=== PATIENT | female | born 1970 | race American Indian/Alaskan Native ===

== ENCOUNTER 2019-08-06 15:38 | Inpatient (IN) | payer OTHER ==
[~2019-08-06] VITALS: Ht 165.1 cm; Wt 61.9 kg
[2019-08-06 16:00] LABS: Calcium, Ionized (POC) 1.11 mmol/L (1.10-1.46); Chloride (POC) 101 mmol/L (98-108); Creatinine (POC) 1.9 mg/dL (0.6-1.0); Glucose (ISTAT POC) 249 mg/dL (70-99); Hemoglobin (POC) 14.3 g/dL (12.0-16.0); Potassium (POC) 4.8 mmol/L (3.5-5.5); Sodium (POC) 132 mmol/L (135-148); Total CO2 (POC) 19 mmol/L (21-32)
[2019-08-06 16:30] LABS: BASOPHILS ABSOLUTE AUTO 0.07 K/mm3 (0.00-0.23); BASOPHILS PERCENT AUTO 0 % (0-2); EOSINOPHILS ABSOLUTE AUTO 0.06 K/mm3 (0.00-0.68); EOSINOPHILS PERCENT AUTO 0 % (0-6); Hematocrit 40.8 % (33.0-51.0); Hemoglobin 12.8 g/dL (11.5-16.0); IMMATURE GRAN PERCENT AUTO 4 % (0-1); LYMPHOCYTES ABSOLUTE AUTO 2.57 K/mm3 (0.84-5.20); LYMPHOCYTES PERCENT AUTO 13 % (21-46); MONOCYTES ABSOLUTE AUTO 0.65 K/mm3 (0.16-1.47); MONOCYTES PERCENT AUTO 3 % (4-13); Mean Corpuscular HGB 27.2 pg (26.0-34.0); Mean Corpuscular HGB Conc 31.4 g/dL (31.5-36.5); Mean Corpuscular Volume 87 fL (80-100); Mean Platelet Volume 10.8 fL (9.1-12.4); NEUTROPHILS ABSOLUTE AUTO 15.29 K/mm3 (1.96-9.15); NEUTROPHILS PERCENT AUTO 79 % (41-73); Platelet Count 456 K/mm3 (150-400); RDW Coefficient Variation 14.9 % (11.7-14.2); RDW Standard Deviation 47.9 fL (35.1-46.3); White Blood Cell Count 19.44 K/mm3 (4.00-11.30)
[2019-08-06 16:38] LABS: International Normalized Ratio 0.99; Prothrombin Time Results 10.5 Sec (9.7-11.5)
[2019-08-06 16:43] LABS: Alanine Aminotransfer (ALT/SGP 171 U/L (12-78); Albumin, Blood 3.4 g/dL (3.4-5.0); Albumin/Globulin Ratio 0.8 (0.8-1.8); Alk Phos 85 U/L (50-136); Anion Gap 15 mmol/L (6-16); Aspartate Aminotrans (AST/SGOT 203 U/L (12-37); Bilirubin, Total 0.2 mg/dL (0.1-1.0); Blood Urea Nitrogen 29 mg/dL (8-24); Bun/Creatinine Ratio 16.4 (12.0-20.0); CO2, Blood 17 mmol/L (21-32); Chloride, Blood 100 mmol/L (98-108); Creatinine, Blood 1.77 mg/dL (0.40-1.00); Ethanol (Alcohol), Blood, Med <3 mg/dL; Globulin, Blood 4.1 g/dL (2.2-4.0); Glomerular Filtration Rate 27 (60-); Glucose, Blood 244 mg/dL (70-99); Magnesium, Blood 2.2 mg/dL (1.6-2.4); Potassium, Blood 4.7 mmol/L (3.5-5.5); Sodium, Blood 132 mmol/L (136-145); Total Protein, Blood 7.5 g/dL (6.4-8.2); Troponin I 0.063 ng/mL (0.000-0.040)
[2019-08-06 16:44] LABS: PCO2 Arterial 44.5 mmHg (35-45); PO2 Arterial 99.8 mmHg (80-100)
[2019-08-06 16:45] LABS: pH Blood Arterial 7.26 (7.35-7.45)
[2019-08-06 17:25] LABS: Source, Urine Catheter
[2019-08-06 17:29] LABS: Bilirubin, Urine Neg (Neg); Blood, Urine 5+ (Neg); Glucose Qualitative, Urine Neg (Neg); Ketones, Urine Neg (Neg); Leukocyte Esterase, Urine Neg (Neg); Nitrite, Urine Neg (Neg); Protein, Urine 4+ (Neg); Specific Gravity, Urine 1.015 (1.003-1.022); Urobilinogen, Urine NORM (Normal); pH, Urine 6.5 (5.0-8.0)
[2019-08-06 17:41] LABS: U Amphetamine Screen DETECTED; U Methamphetamine Screen DETECTED
[2019-08-06 17:42] LABS: U Barbituate Screen Not Detected; U Benzodiazapine Screen Not Detected; U Buprenorphine Screen Not Detected; U Cannabinoids Screen DETECTED; U Cocaine Screen Not Detected; U Methadone Screen Not Detected; U Opiates Screen Not Detected; U Oxycodone Screen Not Detected; U Phencyclidine Screen Not Detected; U Propoxyphene Screen Not Detected
[2019-08-06 17:46] LABS: Appearance, Urine Cloudy (Clear); Color, Urine Yellow (P-Yellow)
[2019-08-06 18:07] LABS: Bacteria Many /hpf; Red Blood Cells, Urine 25-50 /hpf (0-2); Squamous Epithelial Cells Many /hpf (Few)
[2019-08-06 18:09] LABS: Amorphous Mod (0-Heavy)
[2019-08-06 20:49] LABS: PCO2 Arterial 35.4 mmHg (35-45); PO2 Arterial 148 mmHg (80-100); pH Blood Arterial 7.37 (7.35-7.45)
[2019-08-06] MEDS ORDERED: SPIR25 PO (20:59)
[2019-08-06] MEDS ORDERED: METO25 PO (21:00)
--- NOTE | 2019-08-06 23:00 | NUR ---
ARRIVAL TO UNIT PT ARRIVED TO ICU VIA GURNEY WITH ED RN AND RT @ 1855. PT INTUBATED AND SEDATED, VENT SET TO AC 18/400/5/45%, LS COARSE AND WHEEZY T/O, RESP RATE 30'S. MONITOR SHOWS SINUS TACH, HR 130'S, PT HYPERTENSIVE WITH SBP 160'S. PT SEDATED ON PROPOFOL (SEE FLOWSHEET), NOT OPENING EYES, PUPILS EQUAL BUT SLUGGISH. TEMP 97.1. LONGORIA IN PLACE AND DRAINING CLEAR YELLOW URINE. PTS FRIEND ADDI AT BEDSIDE, KNOWS SOME MEDICAL HX REGARDING PT. STS HX OF CHF, BUT WAS UNABLE TO FILL HER "HEART" MEDICATION. STS PT HAS A HX OF IV METH USE, AND CURRENTLY SMOKES METH WITH LAST USE YESTERDAY (08/05/19). PER ADDI, FOR APPROX THE PAST TWO WEEKS, PT HAS BEEN EXPERIENCING INCREASED INDIGESTION AND BACK PN. UPON ARRIVAL TO UNIT PT HAD PERIPHERAL IV X2, ABX AND LR STARTED. DR CHACKO TO ROOM AT APPROX 2030, DR CHACKO SPOKE WITH ADDI (IN ROOM) AND PTS SON (ON PHONE) REGARDING PTS HX AND CURRENT STATUS. PROPOFOL PLACED ON SB TO BETTER ASSESS NEURO STATUS. DECISION MADE TO INITIATE TARGETED TEMPERATURE MANAGEMENT, COOLING CATHETER PLACED, PT RESPONSIVE TO PAIN AT THIS TIME, WITHDRAWING LEG AT TIMES DURING CATHETER PLACEMENT. TARGETED TEMPERATURE MANAGEMENT INITIATED AT 2300. ABG DRAWN FROM R FEMORAL, NEAR CENTRAL LINE, BLEEDING NOTED, DRESSING CHANGED AND PRESSURE/WEIGHT APPLIED TO SITE.
[2019-08-06 23:40] LABS: BASOPHILS ABSOLUTE AUTO 0.05 K/mm3 (0.00-0.23); BASOPHILS PERCENT AUTO 0 % (0-2); EOSINOPHILS PERCENT AUTO 0 % (0-6); Hematocrit 37.8 % (33.0-51.0); IMMATURE GRAN ABSOLUTE AUTO 0.17 K/mm3 (0.00-0.10); IMMATURE GRAN PERCENT AUTO 1 % (0-1); LYMPHOCYTES ABSOLUTE AUTO 0.46 K/mm3 (0.84-5.20); LYMPHOCYTES PERCENT AUTO 2 % (21-46); MONOCYTES ABSOLUTE AUTO 0.52 K/mm3 (0.16-1.47); MONOCYTES PERCENT AUTO 2 % (4-13); Mean Corpuscular HGB Conc 31.7 g/dL (31.5-36.5); Mean Corpuscular Volume 85 fL (80-100); Mean Platelet Volume 10.7 fL (9.1-12.4); NEUTROPHILS ABSOLUTE AUTO 25.86 K/mm3 (1.96-9.15); NEUTROPHILS PERCENT AUTO 96 % (41-73); Platelet Count 394 K/mm3 (150-400); RDW Coefficient Variation 15.2 % (11.7-14.2); RDW Standard Deviation 46.9 fL (35.1-46.3); Red Blood Cell Count 4.44 M/mm3 (3.80-5.20); White Blood Cell Count 27.06 K/mm3 (4.00-11.30)
[2019-08-07 00:01] LABS: International Normalized Ratio 1.01; Prothrombin Time Results 10.7 Sec (9.7-11.5)
[2019-08-07 00:02] LABS: Albumin, Blood 3.4 g/dL (3.4-5.0); Albumin/Globulin Ratio 0.9 (0.8-1.8); Bilirubin, Total 0.5 mg/dL (0.1-1.0); Bun/Creatinine Ratio 21.7 (12.0-20.0); Calcium, Blood 7.9 mg/dL (8.5-10.1); Creatinine, Blood 1.52 mg/dL (0.40-1.00); Globulin, Blood 3.8 g/dL (2.2-4.0); Potassium, Blood 5.4 mmol/L (3.5-5.5); Total Protein, Blood 7.2 g/dL (6.4-8.2)
[2019-08-07 00:04] LABS: Troponin I 0.626 ng/mL (0.000-0.040)
--- NOTE | 2019-08-07 01:00 | NUR ---
PT BEGAN THRASHING AROUND IN BED, PULLING AT RESTRAINTS, KICKING LEGS, ETT DC'D FROM VENTILATOR. PTS EYES OPEN, NOT FOLLOWING DIRECTIONS. ETT AND VENTILATOR QUICKLY RECONNECTED, FENTANYL PROVIDED AND PROPOFOL RESTARTED (SEE FLOW SHEET).
[2019-08-07 03:44] LABS: BASOPHILS ABSOLUTE AUTO 0.03 K/mm3 (0.00-0.23); BASOPHILS PERCENT AUTO 0 % (0-2); EOSINOPHILS PERCENT AUTO 0 % (0-6); Hematocrit 36.4 % (33.0-51.0); Hemoglobin 11.5 g/dL (11.5-16.0); IMMATURE GRAN PERCENT AUTO 1 % (0-1); LYMPHOCYTES ABSOLUTE AUTO 0.45 K/mm3 (0.84-5.20); LYMPHOCYTES PERCENT AUTO 2 % (21-46); MONOCYTES ABSOLUTE AUTO 0.41 K/mm3 (0.16-1.47); MONOCYTES PERCENT AUTO 2 % (4-13); Mean Corpuscular HGB 26.9 pg (26.0-34.0); Mean Corpuscular HGB Conc 31.6 g/dL (31.5-36.5); Mean Corpuscular Volume 85 fL (80-100); Mean Platelet Volume 10.5 fL (9.1-12.4); NEUTROPHILS ABSOLUTE AUTO 18.07 K/mm3 (1.96-9.15); NEUTROPHILS PERCENT AUTO 95 % (41-73); Platelet Count 345 K/mm3 (150-400); RDW Coefficient Variation 15.3 % (11.7-14.2); RDW Standard Deviation 47.8 fL (35.1-46.3); Red Blood Cell Count 4.27 M/mm3 (3.80-5.20); White Blood Cell Count 19.06 K/mm3 (4.00-11.30)
[2019-08-07 04:00] LABS: Albumin, Blood 3.2 g/dL (3.4-5.0); Albumin/Globulin Ratio 0.9 (0.8-1.8); Bilirubin, Total 0.5 mg/dL (0.1-1.0); Bun/Creatinine Ratio 24.4 (12.0-20.0); Creatinine, Blood 1.35 mg/dL (0.40-1.00); Globulin, Blood 3.6 g/dL (2.2-4.0); Potassium, Blood 4.4 mmol/L (3.5-5.5); Total Protein, Blood 6.8 g/dL (6.4-8.2)
[2019-08-07 04:36] LABS: Phosphorus, Blood 3.8 mg/dL (2.5-4.9)
--- NOTE | 2019-08-07 05:45 | NUR ---
SHIFT SUMMARY PT REMAINS INTUBATED AND SEDATED WITH VENT SET TO AC 18/400/5/40%, O2 SATURATIONS MAINTAINED AOBVE 95%, LS COARSE AND WHEEZY TO CLEAR T/O SHIFT, MINIMAL SECRETIONS FROM ETT TOWARDS END OF SHIFT. HR AND BP IMPROVED SINCE ADMISSION, CURRENT RATE 70'S-80'S WITH SBP 140'S-150'S. PROPOFOL PLACED ON SB FOR APPROX 4 HOURS THIS SHIFT TO BETTER ASSESS NEURO STATUS, PT OPENS EYES SPONTANEOUSLY, DOES NOT TRACK OBJECTS, DOES NOT FOLLOW COMMANDS, CORNEAL REFLEX NOT PRESENT AT THIS TIME. PT BECAME VERY AGITATED, PROPOFOL RESTARTED (SEE NURSES NOTE). TARGETED TEMPERATURE MANAGEMENT INITIATED THIS SHIFT, TARGET TEMP OF 96.0 REACHED @ 0015. PT NO LONGER DIAPHORETIC, EXTREMETIES COOL AND DUSKY. LONGORIA IN PLACE DRAINING YELLOW URINE WITH SOME SEDIMENT NOTED, GOOD URINE OUTPUT THIS SHIFT.
[2019-08-07 08:16] LABS: International Normalized Ratio 0.98; Prothrombin Time Results 10.4 Sec (9.7-11.5)
--- NOTE | 2019-08-07 08:53 | NUR ---
SEDATION VACATION: PROPOFOL TURNED OFF PER DR. CHACKO'S ORDERS. PT STARTED OPENING HER EYES, LOOKING AROUND, APPEARED TO LOOK TOWARD VOICES, BUT SHE WAS ALSO THRASHING HER ARMS AND LEGS, UNABLE TO HOLD STILL. SHE DID NOT FOLLOW ANY COMMANDS. DR. CHACKO AT THE BEDSIDE FOR THIS, ORDERED PROPOFOL TO BE TURNED BACK ON, FENTANYL GIVEN WELL. PT SEDATED AGAIN AND APPEARS MORE COMFORTABLE. DR. CHACKO GAVE ORDERS TO STOP COOLING PT SHE IS WAKING UP. TARGET TEMP TURNED TO 98F. CONTINUE TO MONITOR.
--- NOTE | 2019-08-07 12:27 | NUR ---
EXTUBATE: AFTER 30 MINUTE WEANING TRIAL WITH PT ON PS 5 PEEP 5, PULLING VOLUMES GREATER THAN 350ML WHILE SLEEPING EVEN DR. CHACKO GAVE ORDER TO EXTUBATE. PT WAS ON PRECEDEX DURING WEANING TRIAL. SHE WAS MUCH CALMER THAN EARLIER BUT STILL ANXIOUS. PT EXTUBATED AT 1218 AND PLACED ON 2L/NC WITH SPO2 98%. PT A LITTLE ANXIOUS EVEN AFTER EXTUBATION SO PRECEDEX LEFT ON BUT TITRATED DOWN AND WILL CONTINUE TO TITRATE DOWN. PT'S SON AT THE BEDSIDE. CONTINUING TO MONITOR.
--- NOTE | 2019-08-07 12:31 | NUR ---
REASSESSMENT: PT HAS DONE WELL THIS MORNING. ON HER FIRST WEAN SHE WAS VERY AGITATED AND WOULDN'T FOLLOW COMMANDS, BUT WHEN WEANED AGAIN LATER THIS MORNING WITH PRECEDEX SHE WAS MUCH CALMER AND FOLLOWING COMMANDS. SHE WAS EXTUBATED AND IS MAINTAINING SPO2 98% ON 2L/NC, WILL TITRATE O2 DOWN. HER LUNGS STILL HAVE SOME WHEEZES, WEAK COUGH. PRECEDEX REMAINS ON AND WILL TITRATE OFF PT'S ANXIETY ALLOWS. PT IS RESTING QUIETLY RIGHT NOW. WILL ASSESS NEURO STATUS LATER WHEN PT CAN TALK MORE, BUT PT WAS NODDING HER HEAD TO QUESTIONS AND SAID SHE RECOGNIZED HER FAMILY WHILE SHE WAS STILL INTUBATED. SR, BP STABLE. BODY TEMP 98.4F, COOLING PARAMETERS WERE STOPPED BY DR CHACKO ONCE HE SAW SHE WAS WAKING UP. PT'S SONS ARE AT THE BEDSIDE AND HAVE BEEN UPDATED REPEATEDLY ABOUT HER PROGRESS.
--- NOTE | 2019-08-07 14:47 | NUR ---
ECHOCARDIOGRAM COMPLETE
--- NOTE | 2019-08-07 16:25 | NUR ---
SHIFT SUMMARY: PT WAS EXTUBATED TODAY AND HAS DONE WELL. SHE IS NOW ON RA WITH SPO2 GREATER THAN 95%. LUNGS STILL HAVE EXP WHEEZES. PT IS ORIENTED TO HERSELF AND HER FAMILY. SHE CAN'T REMEMBER WHERE SHE IS OR THE DATE DESPITE BEING TOLD MULTIPLE TIMES. SHE ASKS EVERY FEW MINUTES WHAT HAPPENED TO PUT HER IN THE HOSPITAL AND ALWAYS ACTS SURPRISED WHEN SHE IS TOLD. SHE IS TAKING SIPS OF WATER NOW WITHOUT ANY SIGNS OF ASPIRATION. SHE IS SR/ST WITH RATE IN THE 90 TO LOW 100S. BP STABLE. TEMP 99.0F. LONGORIA REMAINS IN PLACE DRAINING CL YELLOW URINE. CENTRAL LINE REMOVED PER DR. CHACKO. PT HAD A SMALL AMT OF BLEEDING AFTER THE INITIAL PULL AND PRESSURE HOLDING. PRESSURE HELD AGAIN FOR ABOUT 5 MINUTES AND BLEEDING STOPPED. DRAINAGE ON DRESSING OUTLINED. FAMILY REMAINS AT THE BEDSIDE AND HAS CONTINUED TO BE UPDATED THROUGHOUT THE DAY.
--- NOTE | 2019-08-07 20:15 | NUR ---
CENTRAL LINE SITE DRESSING SATURATED WITH BLOOD, DRESSING FALLING OFF. BLEEDING NOTED AT THE LOCATION OF SUTURE SITE FOR PREVIOUS CENTRAL LINE, PRESSURE HELD, KAREL DRESSING APPLIED, WILL CONTINUE TO MONITOR.
--- NOTE | 2019-08-07 21:00 | NUR ---
ASSUMPTION OF CARE ASSUMED CARE OF PT @ 1900. PT AWAKE IN BED, O2 SATURATIONS 96% ON RA, LS COARSE AND WHEEZY T/O, MONITOR SHOWS SINUS TACH, RATE 110-120'S, PT DENIES CP AND SOB. PT ORIENTED TO SELF, PLACE AND FAMILY, DID NOT KNOW THE MONTH BUT KNEW THE UPCOMING HOLIDAY (). PT SEEMS TO HAVE SOME SHORT TERM MEMORY ISSUES, NEEDING FREQUENT REORIENTATION TO THE EVENTS THAT LED UP TO THIS HOSPITAL STAY. PT PLEASANT AND COOPERATIVE. SKIN IS WARM. BOWEL TONES FAIRLY HYPOACTIVE TO THE RUQ AND RLQ, LLQ AND LUQ NORMAL BOWEL TONES, BELLY IS SOFT AND PT DENIES PAIN WITH PALPATION, UNABLE TO DETERMINE LAST BM. LONGORIA IN PLACE DRAINING CLEAR YELLOW URINE. CENTRAL LINE DC'D ON PREVIOUS SHIFT, DRESSING TO R FEMORAL WITH SOME BLOOD NOTED, PLAN TO CHANGE DRESSING THIS SHIFT.
--- NOTE | 2019-08-07 21:30 | NUR ---
PT COMPLAINING LEFT CHEST PAIN, PT STATUS POST CPR AND DEFIBRILATION, DENIES SOB, STS PAIN IS WORSE WITH PALPATION. PT ALT LOC SINCE EXTUBATION, UNABLE TO RATE PAIN. SEE PAIN ASESSMENT. NO CHANGE NOTED IN VS OR HEART RHYTHM. PRN FENTANLY PROVIDED.
--- NOTE | 2019-08-07 23:00 | NUR ---
DR CHACKO IN TO SEE PT. UPDATED ON PTS STATUS, PT SOMEWHAT RESTLESS IN BED, SOME BLEEDING TO R GROIN AREA FROM PREVIOUS CENTRAL LINE. ORDERS TO RESTART PRECEDEX AT 0.2 AND DELAY MORNING LOVENOX UNTIL 1200.
--- NOTE | 2019-08-08 00:30 | NUR ---
UPDATE DR CHACKO ON PTS R FEMORAL SITE, CONTINUES TO BLEED, DRESSING CHANGE x4 THIS SHIFT. PT EASILY AROUSED. DR CHACKO CHECKED WOUND SITE, ORDERS TO TITRATE PRECEDEX UP TO 1.4 NEEDED. SITE DRESSED WITH KAREL DRESSING, ABD PAD AND PRESSURE DRESSING. PRESSURE HELD TO SITE. WILL CONTINUE TO MONITOR AND CHANGE NEEDED.
--- NOTE | 2019-08-08 02:00 | NUR ---
ST CHANGES NOTED ON RHYTHM STRIP, EKG DONE, NO CHANGES NOTED FROM PREVIOUS EKG.
--- NOTE | 2019-08-08 02:30 | NUR ---
R GROIN WOUND ASSESSMENT, ABD PAD SATURATED. FEMSTOP APPLIED AT THIS TIME.
[2019-08-08 03:48] LABS: BASOPHILS ABSOLUTE AUTO 0.02 K/mm3 (0.00-0.23); BASOPHILS PERCENT AUTO 0 % (0-2); EOSINOPHILS PERCENT AUTO 0 % (0-6); Hematocrit 28.8 % (33.0-51.0); Hemoglobin 8.9 g/dL (11.5-16.0); IMMATURE GRAN ABSOLUTE AUTO 0.09 K/mm3 (0.00-0.10); IMMATURE GRAN PERCENT AUTO 1 % (0-1); LYMPHOCYTES ABSOLUTE AUTO 0.28 K/mm3 (0.84-5.20); LYMPHOCYTES PERCENT AUTO 2 % (21-46); MONOCYTES ABSOLUTE AUTO 0.12 K/mm3 (0.16-1.47); MONOCYTES PERCENT AUTO 1 % (4-13); Mean Corpuscular HGB 26.3 pg (26.0-34.0); Mean Corpuscular HGB Conc 30.9 g/dL (31.5-36.5); Mean Corpuscular Volume 85 fL (80-100); Mean Platelet Volume 10.6 fL (9.1-12.4); NEUTROPHILS ABSOLUTE AUTO 13.68 K/mm3 (1.96-9.15); NEUTROPHILS PERCENT AUTO 97 % (41-73); Platelet Count 254 K/mm3 (150-400); RDW Coefficient Variation 15.9 % (11.7-14.2); RDW Standard Deviation 49.7 fL (35.1-46.3); Red Blood Cell Count 3.38 M/mm3 (3.80-5.20); White Blood Cell Count 14.19 K/mm3 (4.00-11.30)
[2019-08-08 04:00] LABS: Anion Gap 9 mmol/L (6-16); Blood Urea Nitrogen 22 mg/dL (8-24); Bun/Creatinine Ratio 21.2 (12.0-20.0); CO2, Blood 22 mmol/L (21-32); Calcium, Blood 8.4 mg/dL (8.5-10.1); Chloride, Blood 111 mmol/L (98-108); Creatinine, Blood 1.04 mg/dL (0.40-1.00); Glomerular Filtration Rate 59 (60-); Glucose, Blood 139 mg/dL (70-99); Phosphorus, Blood 2.3 mg/dL (2.5-4.9); Potassium, Blood 4.3 mmol/L (3.5-5.5); Sodium, Blood 142 mmol/L (136-145)
--- NOTE | 2019-08-08 05:50 | NUR ---
SHIFT SUMMARY PT NEURO STATUS UNCHANGED FROM BEGINNING OF SHIFT. LS COARS AND WHEEZY T/O, BUT OVERALL IMPROVED FROM BEGINNING OF SHIFT, 2L O2 PER NC APPLIED BREIFLY THIS SHIFT AFTER O2 SATURATIONS DECREASED TO 85% POST FENTANYL ADMINISTRATION, PT NOW ON RA, O2 94%. MONITOR SHOWS SINUS RHYTHM, HR 80'S, SBP 120'S, PRECEDEX RUNNING AT 1.1. ISSUES WITH BLEEDING AT CENTRAL LINE SUTURE SITE SUBSIDED POST FEMOSTOP APPLICATION, BALLOON NEVER INFLATED, SLOWLY RELEASING TENSION. LONGORIA IN PLACE WITH GOOD URINE OUTPUT.
--- NOTE | 2019-08-08 07:20 | NUR ---
DR. VARGAS HERE TO ASSESS PATIENT; WANTS TO KEEP HER IN ICU ONE MORE DAY D/T WHEEZING, BLEEDING ISSUE, ETC. SEE ORDERS.
--- NOTE | 2019-08-08 07:30 | NUR ---
ASSUMED CARE OF PATIENT; SEE ASSESSMENT CHARTING FOR DETAILS. PATIENT SLEEPING; AROUSES TO MODERATE, LOUD VERBAL STIMULI OR FIRMER TOUCH. REMAINS ON PRECEDEX GTT AT 1.1 MCG/KG/MIN; TRYING TO KEEP PATIENT CALM. R GROIN (SUTURE AREA) WITH FEM STOP SECURED; NOT INFLATED, HOWEVER. PATIENT WITH PERSISTENT BLEEDING THROUGH DRESSINGS; EVEN WITH DIRECT PRESSURE HELD FOR LONG PERIODS. CURRENTLY, OLD BLOOD NOTED TO 2X2 DRESSINGS (BENEATH FEM STOP); HAS NOT INCREASED SINCE 0230 PER PELT SHEARER RN. GOOD PULSES TO ALL EXTREMITIES AND VSS. MONITOR REMAINS NSR; TEMP. 99.9/TEMPORAL; SHEET AND GOWN IN PLACE BUT NO BLANKET. WBC DOWN TO 14.19 THIS AM. LUNGS WITH WHEEZES NOTED IN UPPER AIRWAYS; RECEIVING UDN TX'S; REMAINS ON ROOM AIR. LONGORIA TO GRAVITY WITH TEMP. PROBE. PATIENT REMAINS ON MENSES; DANIELLE CARE DONE PRN. OVERALL STATUS IMPROVED.
--- NOTE | 2019-08-08 09:00 | NUR ---
PT. REPOSITIONED ONTO R SIDE; FEM STOP RELEASED; SITE UNCHANGED; NO ACUTE BLEEDING.
--- NOTE | 2019-08-08 09:15 | NUR ---
PATIENT GIVEN YOGURT WITH ASA PILL; TOLERATED WELL; FULL LIQUID TRAY STARTING AT LUNCH. RN MAY ADVANCE KAMAR. PATIENT WONDERING WHAT HAPPENED TO HER TEETH (UPPER PLATE OUT). RN REVIEWED WHY PATIENT CAME TO HOSPITAL (COLLAPSED/NON-RESPONSIVE AT HOME SHE WAS CLEANING; FOUND BY HOME SWAMPER WHEN HOME SWAMPER CAME OUT OF BATHROOM; PATIENT NOT BREATHING AND HEART STOPPED). EMS CALLED AND PATIENT WAS IN V-FIB AND REQUIRED DEFIB./CPR AND INTUBATION; TEETH WERE PROBABLY LEFT IN HOME-OWNERS HOME. PATIENT DOES NOT RECALL INCIDENT; WITHIN A MINUTE SHE RE-ASKED RN "WHERE ARE MY TEETH?" RN RE-EXPLAINED. SAME QUESTION EVERY FEW MINUTES. PATIENT UNAWARE OF MONTH/DAY OR YEAR; THOUGHT IT WAS 2002.
--- NOTE | 2019-08-08 09:50 | NUR ---
FAMILY HERE; PATIENT ASKED THEM WHERE HER TEETH ARE AND THEY INFORMED PATIENT THEY ARE WITH [facility]. SAME QUESTION RE-ASKED OF IQRA TO FAMILY AND RN.
--- NOTE | 2019-08-08 11:20 | NUR ---
DR. CHACKO (WEDGER MACHINE) HERE; ORDERED OT/PT EVAL AND TX.
--- NOTE | 2019-08-08 14:00 | NUR ---
PRECEDEX REDUCED TO 0.5MCG/KG/HR; PATIENT REMAINS WITH SHORT-TERM MEMORY ISSUES BUT VERY PLEASANT AND COOPERATIVE.
--- NOTE | 2019-08-08 16:25 | NUR ---
[facility] note: Zarina was surrounded by friends and family when I visited. She smiles easily, but appears confused as to why she is here. She appears well-suported by family/friends. She has three sons, none of which live locally. Twin sons are present having arrived from [place]. No concerns presented. Family quieted with Tnt Powder Worker arrival. I will attempt one-on-one visit with Zarina in coming days.
--- NOTE | 2019-08-08 16:35 | NUR ---
VICODAN (2 TABS) GIVEN FOR CHEST SORENESS; STATES PAIN 5/10.
--- NOTE | 2019-08-08 16:40 | NUR ---
PRECEDEX GTT REDUCED TO 0.3MCG/KG/HR.
--- NOTE | 2019-08-08 18:27 | NUR ---
SUMMARY: APPETITE GOOD AND NO GI UPSET. LONGORIA DRAINING MODERATE AMOUNTS OF STRAW COLORED URINE (850)ML. REMAINS ON MENSES; DANIELLE CARE AND CATH. CARE DONE SEVERAL TIMES A DAY. LOTS OF FAMILY AND FRIENDS VISITING. PATIENT REMAINS FORGETFUL (SHORT-TERM) BUT APPEARS MORE ALERT AND TALKING (INITIATING) CONVERSATIONS. ABLE TO FEED SELF WITHOUT ISSUES; NO S/SX OF ASPIRATION. REMAINS ON ROOM AIR BUT CONSISTENT WHEEZING TO UPPER AIRWAYS. PRECEDEX GTT TITRATED FROM 1.1MCG/KG/HR AT 0730 DOWN 0.3 MCG/KG/HR AT PRESENT. R FEMORAL DRESSING CHANGED THIS AM; NO BLEEDING NOTED ON CURRENT DRESSING. OT AND PT DID EVALS. THIS AFTERNOON; SEE NOTES.
--- NOTE | 2019-08-08 20:30 | NUR ---
ASSUMPTION OF CARE ASSUMED CARE OF PT AT 1900. PT AWAKE IN BED, VISITING WITH FRIENDS AND FAMILY, A&O x4, PT EXHIBITING SOME SHORT TERM MEMORY DEFECITS BUT IS IMPROVED FROM PREVIOUS SHIFT. PTS RESPIRATIONS EVEN AND UNLABORED DENIES SOB, LS COARSE WITH SOME EXPIRATORY WHEEZES TO THE LEFT LOBES. PT HAS OCCASSIONAL COUGH, EXPRESSES PAIN IN THE STERNAL/COSTAL AREA WITH COUGH, EDUCATED TO SPLINT CHEST WITH PILLOW WHEN COUGHING TO REDUCE PAIN. MONITOR SHOWS NSR TO SINUS TACH, SBP 120'S. PT TOLERATING PO INTAKE, DENIES GI ISSUES. LONGORIA IN PLACE AND DRAINING CLEAR YELLOW URINE. PRECEDEX RUNNING @ .3 (SEE FLOWSHEET)
[2019-08-09 03:48] LABS: BASOPHILS ABSOLUTE AUTO 0.02 K/mm3 (0.00-0.23); BASOPHILS PERCENT AUTO 0 % (0-2); EOSINOPHILS PERCENT AUTO 0 % (0-6); Hemoglobin 8.8 g/dL (11.5-16.0); IMMATURE GRAN ABSOLUTE AUTO 0.12 K/mm3 (0.00-0.10); IMMATURE GRAN PERCENT AUTO 1 % (0-1); LYMPHOCYTES ABSOLUTE AUTO 0.36 K/mm3 (0.84-5.20); LYMPHOCYTES PERCENT AUTO 2 % (21-46); MONOCYTES ABSOLUTE AUTO 0.37 K/mm3 (0.16-1.47); MONOCYTES PERCENT AUTO 2 % (4-13); Mean Corpuscular HGB 26.8 pg (26.0-34.0); Mean Corpuscular HGB Conc 31.4 g/dL (31.5-36.5); Mean Corpuscular Volume 85 fL (80-100); Mean Platelet Volume 10.6 fL (9.1-12.4); NEUTROPHILS PERCENT AUTO 95 % (41-73); Platelet Count 244 K/mm3 (150-400); RDW Coefficient Variation 16.2 % (11.7-14.2); RDW Standard Deviation 50.5 fL (35.1-46.3); Red Blood Cell Count 3.28 M/mm3 (3.80-5.20); White Blood Cell Count 18.67 K/mm3 (4.00-11.30)
[2019-08-09 04:07] LABS: Alanine Aminotransfer (ALT/SGP 70 U/L (12-78); Albumin/Globulin Ratio 0.9 (0.8-1.8); Alk Phos 45 U/L (50-136); Anion Gap 7 mmol/L (6-16); Aspartate Aminotrans (AST/SGOT 44 U/L (12-37); Bilirubin, Direct 0.1 mg/dL (0.0-0.3); Bilirubin, Indirect 0.3 mg/dL (0.1-0.7); Bilirubin, Total 0.4 mg/dL (0.1-1.0); Blood Urea Nitrogen 23 mg/dL (8-24); Bun/Creatinine Ratio 24.9 (12.0-20.0); CO2, Blood 24 mmol/L (21-32); Calcium, Blood 8.5 mg/dL (8.5-10.1); Chloride, Blood 110 mmol/L (98-108); Creatinine, Blood 0.92 mg/dL (0.40-1.00); Globulin, Blood 3.4 g/dL (2.2-4.0); Glomerular Filtration Rate >60 (60-); Glucose, Blood 143 mg/dL (70-99); Phosphorus, Blood 2.2 mg/dL (2.5-4.9); Potassium, Blood 4.9 mmol/L (3.5-5.5); Sodium, Blood 141 mmol/L (136-145); Total Protein, Blood 6.4 g/dL (6.4-8.2)
--- NOTE | 2019-08-09 05:41 | NUR ---
CALL PLACED TO DR CHACKO REGARDING MORNING LABS (PHOS 2.2), ORDERS FOR 30 MM POTASSIUM PHOSPHATE IV X1.
--- NOTE | 2019-08-09 06:58 | NUR ---
SHIFT SUMMARY PT RESTED WELL T/O NIGHT, AROUSES EASILY WITH NURSING CARE, SOME SHORT TERM MEMORY DEFECITS STILL APPARAENT, BUT IMPROVING T/O SHIFT. PT COMPLAINS OF STERNAL CP TO AREA WHERE CPR AND DEFIB WAS PERFORMED, PRN NORCO PROVIDED. PT EXPRESSED CONCERNS OF LIVING SITUATION EARLY THIS SHIFT, REPORTED THIS TO DAYSHIFT RN. PT TOLERATING PO INTAKE WITH MILD NAUSEA EARLY IN SHIFT, GERA MIST AND CRACKERS ADEQUATE TO RELEIVE NAUSEA. PT BECAME VERY ANXIOUS WITH 3AM NEB TREATMENT, COMPLAINED OF SOB AND TIGHTNESS IN CHEST, VITAL SIGNS REMAINED STABLE, DIRECTED PT TO TAKE SLOW DEEP BREATHS. PRECEDEX RUNNING AT 0.5, MONITOR SHOWS SINUS TACH TO NSR, SBP 120-150'S T/O SHIFT. MORNING LABS SHOWED LOW PHOS, SODIUM PHOS CURRENTLY INFUSING. CBG'S REMAIN STABLE, NO INSULIN COVERAGE INDICATED. REPORT GIVEN TO PAGE DIAL.
--- NOTE | 2019-08-09 08:30 | NUR ---
INITIAL ASSESMENT PT ALERT AND ORIENTED TIMES THREE AND CONFUSED ON CIRCUMSTANCES AND WHY SHE IS IN THE HOSPITAL. SHORT TERM MEMORY DEFICIT AND PREOCCUPIED WITH GOING OUTSIDE TO SMOKE. PT DECLINES MEDS AT THIS TIME WILL FOLLOWUP AT A LETER TIME. VSS, AFEBRILE, PALP PULSES T/O NO EDEMA. RA WITH SATS IN THE MID TO HIGH 90S AND CLEAR AND DIM BILAT. UO ADEQUATE VIA LONGORIA. WILL D/C PER MD ORDER. TOLERATING DIET WITH NO N/V OR BM. WILL CONT TO MONITOR
--- NOTE | 2019-08-09 16:45 | NUR ---
PT UPDATE PT REMAINS CALM AND COOPERATIVE NOW ALERT AND ORIENT TIMES FOUR. C/O VALENZUELA AND STERNAL PAIN R/T CHEST COMPRESSIONS WITH PRN GIVEN PER MD ORDER. VSS, RA WITH SATS WNL. TOLERATING DIET AND UO ADEQUATE. WILL CONT TO MONITOR
--- NOTE | 2019-08-09 17:22 | NUR ---
Echocardiogram completed.
--- NOTE | 2019-08-09 20:00 | NUR ---
PATIENT AWAKE UP AMBULATE TO TOILET WITH MIN ASSIST. UNABLE TO HAVE BM, BUT PASSING SMALL AMT OF URINE, MENSTRUATING, ABLE TO DO DANIELLE CARE WITH MIN ASSISTANCE. RIGHT GROIN SITE WITH DRESSING CD&I. PATIENT C/O PAIN TO MID CHEST MORE SO WITH DEEP BREATH OR COUGH. PATIENT VERBALIZED UNDERSTANDING REGARDING HAVING ASSISTANCE WHEN GETTING OUT OF BED DUE TO FALL RISK. PATIENT HEART RATE UP TO 120'S WHEN UP IN ROOM.
[2019-08-10 03:44] LABS: BASOPHILS ABSOLUTE AUTO 0.01 K/mm3 (0.00-0.23); BASOPHILS PERCENT AUTO 0 % (0-2); EOSINOPHILS ABSOLUTE AUTO 0.02 K/mm3 (0.00-0.68); EOSINOPHILS PERCENT AUTO 0 % (0-6); Hematocrit 32.1 % (33.0-51.0); Hemoglobin 10.1 g/dL (11.5-16.0); IMMATURE GRAN PERCENT AUTO 1 % (0-1); LYMPHOCYTES ABSOLUTE AUTO 0.62 K/mm3 (0.84-5.20); LYMPHOCYTES PERCENT AUTO 3 % (21-46); MONOCYTES ABSOLUTE AUTO 0.53 K/mm3 (0.16-1.47); MONOCYTES PERCENT AUTO 3 % (4-13); Mean Corpuscular HGB 27.2 pg (26.0-34.0); Mean Corpuscular HGB Conc 31.5 g/dL (31.5-36.5); Mean Corpuscular Volume 87 fL (80-100); Mean Platelet Volume 10.5 fL (9.1-12.4); NEUTROPHILS ABSOLUTE AUTO 18.29 K/mm3 (1.96-9.15); NEUTROPHILS PERCENT AUTO 93 % (41-73); NRBC ABSOLUTE 0.03 K/mm3 (0.00-0.02); NRBC Auto 0.2 /100 WBC (0.0-0.2); Platelet Count 331 K/mm3 (150-400); RDW Coefficient Variation 16.5 % (11.7-14.2); Red Blood Cell Count 3.71 M/mm3 (3.80-5.20); White Blood Cell Count 19.57 K/mm3 (4.00-11.30)
[2019-08-10 04:01] LABS: Albumin, Blood 3.2 g/dL (3.4-5.0); Anion Gap 6 mmol/L (6-16); Blood Urea Nitrogen 27 mg/dL (8-24); Bun/Creatinine Ratio 26.2 (12.0-20.0); CO2, Blood 26 mmol/L (21-32); Calcium, Blood 8.9 mg/dL (8.5-10.1); Chloride, Blood 109 mmol/L (98-108); Creatinine, Blood 1.03 mg/dL (0.40-1.00); Glomerular Filtration Rate >60 (60-); Glucose, Blood 127 mg/dL (70-99); Phosphorus, Blood 3.8 mg/dL (2.5-4.9); Potassium, Blood 4.9 mmol/L (3.5-5.5); Sodium, Blood 141 mmol/L (136-145)
--- NOTE | 2019-08-10 06:30 | NUR ---
SUMMARY PATIENT AWAKE MOST OF THE NIGHT. C/O PAIN TO MID CHEST INCREASED PAIN WITH DEEP BREATH OR COUGH. SLIGHTLY FORGETFUL, UP IN ROOM INDEPENDENTLY, ACCIDENTALLY REMOVED IV WHEN UP WALKING BECAUSE SHE FORGOT TO BRING THE IV POLE WITH HER. PATIENT MEDICATED WITH NORCO T/O THE NIGHT.
[2019-08-10] MEDS ORDERED: METO100 PO (13:35)
[2019-08-10] MEDS ORDERED: Norco 7.5-3251 EACH PO (13:36)
[2019-08-10] MEDS ORDERED: LISI20 PO (13:36)
[2019-08-10] MEDS ORDERED: LEVFLO500 PO (13:36)
[2019-08-10] MEDS ORDERED: ASPI81CH PO (13:38)
== END 2019-08-10 14:10 | disposition home or self-care (01) | DRG 308 ==
LOC: ER 15:38 → ICUE 18:06 → ICUW 18:06 → ICUE 19:07
PROVIDERS: Emergency Medicine; Internal Medicine Critical Care Medicine; ADMIT Internal Medicine
PROC: 5A1935Z Respiratory Ventilation, Less than 24 Consecutive Hours (ICD-10-PCS; principal; 2019-08-06)
PROC: 0BH17EZ Insertion of Endotracheal Airway into Trachea, Via Natural or Artificial Opening (ICD-10-PCS; 2019-08-06)
PROC: 05HY33Z Insertion of Infusion Device into Upper Vein, Percutaneous Approach (ICD-10-PCS; 2019-08-06)
DX: I49.01 Ventricular fibrillation (principal); K72.00 Acute and subacute hepatic failure without coma; J69.0 Pneumonitis due to inhalation of food and vomit; N17.9 Acute kidney failure, unspecified; I50.22 Chronic systolic (congestive) heart failure; G93.1 Anoxic brain damage, not elsewhere classified; J44.1 Chronic obstructive pulmonary disease with (acute) exacerbation; F15.20 Other stimulant dependence, uncomplicated; I11.0 Hypertensive heart disease with heart failure; I46.2 Cardiac arrest due to underlying cardiac condition; R73.9 Hyperglycemia, unspecified; Z78.1 Physical restraint status; I42.9 Cardiomyopathy, unspecified; T38.0X5A Adverse effect of glucocorticoids and synthetic analogues, initial encounter; Y92.9 Unspecified place or not applicable; F17.210 Nicotine dependence, cigarettes, uncomplicated
CPT/HCPCS: 31500; 31720; 36415; 36556; 36600; 51702; 70450; 71045; 71046; 80047; 80053; 80069; 81001; 82248; 82803; 82947; 83036; 83605; 83735; 83880; 84100; 84484; 84703; 85014; 85025; 85610; 85730; 87086; 93005; 93010; 93306; 93308; 93321; 94002; 94003; 94640; 94760; 96361-59; 96374-59; 96375-59; 97110; 97116; 97162; 97166; 97530; 97535; 99285-25; C9113; G0480; J0330; J1650; J1815; J2250; J2543; J2704; J2920; J3010; J7030; J7040; J7050; J7060; J7120; J7512